=== PATIENT | male | born 1950 | race Caucasian/White ===

== ENCOUNTER 2017-02-28 08:03 | Day surgery (SDC) | payer MEDICARE, OTHER ==
[~2017-02-28 08:03] MED LIST: Lactated Ringers 1,000 ML IV SCH; Sodium Chloride 0.9% 10 ML Syringe FLUSH PRN
[2017-02-28] MEDS ORDERED: Midazolam 1 MG/ML 2 ML SDV IV ONE (09:43)
[2017-02-28] MEDS ORDERED: Propofol 200 MG/20 ML SDV IV ONE (09:43)
--- NOTE | 2017-02-28 10:17 | PCM.OPNOTE ---
- General Post-Op/Procedure Note Date of Surgery/Procedure: 02/28/17 Operative Procedure(s): c scope with bx Findings: rectal mass at 14 cm Pre Op Diagnosis: hematochezia Post-Op Diagnosis: rectal mass Anesthesia Technique: MAC Primary Surgeon: Fabián Steen Anesthesia Provider: Masha Eric Pathology: rectal mass Complications: None Condition: Good Free Text/Narrative:: see dictation
[2017-02-28 11:49] VITALS: BP 113/72
--- NOTE | 2017-03-08 09:00 | OR ---
DATE OF OPERATION: 03/08/2017 SURGEON: Fabián Steen MD PROCEDURE PERFORMED: Colonoscopy with biopsy. PREOPERATIVE DIAGNOSIS: Hematochezia. POSTOPERATIVE DIAGNOSIS: Rectal mass. INDICATIONS FOR PROCEDURE: This is a 66-year-old white male who presents with a complaint of bright red blood per rectum. He has a history of colonoscope in the past, where random biopsies were taken due to diarrhea and no abnormality was noted at that time. He was offered and accepted colonoscopy. DESCRIPTION OF PROCEDURE: After an excellent IV sedation was administered, digital rectal exam was performed. No marked abnormality was noted. Flexible colonoscope was inserted and advanced without difficulty to the cecum. The prep was excellent. The following findings were noted. Ascending colon, unremarkable. Transverse colon, unremarkable. Descending colon, unremarkable. Sigmoid, unremarkable. Rectum, at approximately 10 cm, a rectal mass involving approximately a quarter of the sidewall was encountered. It was approximately 1 cm in length. Multiple biopsies were taken of this lesion, as it was not amenable to resection via the colonoscopy. Remainder of the rectal exam was unremarkable. The colon was deflated. The scope was removed. The patient tolerated the procedure well and was taken to recovery room in good condition. /[id number] /MODL
== END 2017-02-28 11:12 | disposition home or self-care (01) ==
LOC: FB.SDS 08:03
PROVIDERS: ATTEND Surgery
DX: K92.1 Melena (principal); C20 Malignant neoplasm of rectum; Z87.891 Personal history of nicotine dependence; Z91.030 Bee allergy status
CPT/HCPCS: 00810; 45380; 88305; J2250; J2704; J7120